=== PATIENT | male | born 1995 | race Caucasian/White ===

== ENCOUNTER 2016-10-26 11:52 | Emergency (ER) | payer MEDICAID ==
--- NOTE | 2016-10-26 12:09 | EDPHY ---
H & P Time Seen by Provider: 10/26/16 12:01 HPI/ROS: CHIEF COMPLAINT: left foot pain/ankle pain HISTORY OF PRESENT ILLNESS: The patient is a 21-year-old male who presents emergency department after injuring his ankle/foot while playing basketball last evening. Patient came down on his toe in [place] his foot. He now has moderate pain over the left anterior ankle and left anterior foot. He states he has broken the metatarsals in my foot previously. Patient sustained no other injury. REVIEW OF SYSTEMS: Negative Past Medical/Surgical History: Left foot fracture Past surgical history: Negative Smoking Status: Never smoked Physical Exam: Vitals noted General Appearance: Alert and no distress. Head: Pupils equal. Normal. Respiratory: No respiratory distress. Cardiac: regular rate and rhythm. Extremities: patient has tenderness to palpation over his anterior left ankle. There is mild swelling. There is no malleoli tenderness to palpation. The patient also has mild tenderness palpation over his proximal 3rd, 4th and 5th metatarsals. There is ecchymosis over the the anterior/lateral foot. Skin: No rashes or lesions. Neuro: Alert. Normal mood and affect. Constitutional: Initial Vital Signs Temperature (C) 37.3 C 10/26/16 11:53 Heart Rate 95 10/26/16 11:53 Respiratory Rate 16 10/26/16 11:53 Blood Pressure 151/52 H 10/26/16 11:53 O2 Sat (%) 96 10/26/16 11:53 O2 Delivery Mode Room Air Allergies/Adverse Reactions: No Known Allergies Allergy (Unverified 10/26/16 11:57) Home Medications: Medication Instructions Recorded NK [No Known Home Meds] 10/26/16 Medical Decision Making ED Course/Re-evaluation: In the emergency department I met the patient on arrival. An x-ray of his left foot was ordered. I discussed the plan with the patient answers questions. X-ray of the foot and ankle: Please refer the dictated report. Of note the patient has a small avulsion fracture off the navicular bone. No other dislocation or fracture identified. I discussed the result with the patient. I answered all his questions. He was given follow-up information with orthopedics. In the emergency department he was given a Wolsey boot and crutches. Patient was given warnings prior to leaving. Differential Diagnosis: My differential includes but is not limited to fracture, dislocation, sprain, contusion Departure - Departure Disposition: Home, Routine, Self-Care Clinical Impression: Avulsion fracture of navicular bone of foot Qualifiers: Encounter type: initial encounter Fracture type: closed Laterality: left Qualifier Code: (S92.252A) Displaced fracture of navicular [scaphoid] of left foot, initial encounter for closed fracture Condition: Good Instructions: Foot Fracture in Adults (ED) Referrals: Myles Edwards MD [Medical Doctor] - 5-7 days, call for appt.
--- NOTE | 2016-10-26 12:54 | DX ---
Left Foot and Left Ankle, 3 Views Each at 12:11 p.m. Clinical History: 21-year-old male with left ankle pain at the lateral malleolus after rolling his an kle yesterday playing basketball. Comparison Study: Left foot, dated November 22, 2013. Findings: LEFT FOOT: There has been no change in the old avulsion fracture near the lateral calcaneocuboid yamilet nt or in the avulsion seen near the medial first tarsometatarsal joint; however, there is a new chip fracture off of the dorsal navicular on the lateral view. There is some mild soft tissue swelling, an d there may be a small ankle joint effusion. The tarsometatarsal alignments are anatomic. Impression: Acute avulsion fracture off of the anterior capsular insertion on the proximal dorsal na vicular. LEFT ANKLE: Again, there is a dorsal chip fracture at the anterior capsular insertion point on the p roximal dorsal navicular (seen on the lateral view). There is some soft tissue swelling seen laterall y. The mortise is maintained, and the talar dome is well-contoured. The lateral malleolus is intact. There is a well-corticated old avulsion fragment off of the lateral midfoot, unchanged from the 2014 exam. The subtalar joint is normal. There is a small anterior ankle joint effusion. Impression: Acute avulsion fracture off of the proximal dorsal navicular at the anterior capsular in sertion point.
[2016-10-26 13:17] VITALS: BP 122/65; PULSE 90; RESP 20; TEMP 98.1; O2SAT 97
== END 2016-10-26 13:17 | disposition home or self-care (01) ==
DX: S92.252A Displaced fracture of navicular [scaphoid] of left foot, initial encounter for closed fracture (principal); X58.XXXA Exposure to other specified factors, initial encounter; Y99.8 Other external cause status; Y93.67 Activity, basketball
CPT/HCPCS: L4386